=== PATIENT | male | born 1955 | race Caucasian/White ===

== ENCOUNTER 2018-04-11 14:54 | Inpatient (IN) | payer OTHER ==
[2018-04-11 17:10] VITALS: BMI 23.7
[2018-04-11] MEDS ORDERED: MELATONIN 5 MG TABLETS PO PRN (22:00)
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
[2018-04-11] MEDS ORDERED: guaiFENesin/D-METHORPHAN HB 10 ML UNIT-DOSE CUPS PO PRN (22:40)
[2018-04-11] MEDS ORDERED: P-EPHED 60MG/TRIPROLIDI 2.5MG TABLET PO PRN (22:40)
[2018-04-11] MEDS ORDERED: MAG HYDROX/AL HYDROX/SIMETH 30 ML UNIT-DOSE CUP PO PRN (22:40)
[2018-04-11] MEDS ORDERED: LOPERAMIDE HCL 2 MG CAPSULE PO PRN (22:40)
[2018-04-11] MEDS ORDERED: MAGNESIUM CITRATE 300 ML BOTTLE PO PRN (22:40)
[2018-04-11] MEDS ORDERED: ACETAMINOPHEN 325 MG TABLET (FP) PO PRN (22:40)
[2018-04-11] MEDS ORDERED: MENTHOL/PHENOL 1 EACH UD MM PRN (22:40)
[2018-04-11] MEDS ORDERED: chlordiazePOXIDE HCL 25 MG CAPSULE PO PRN (22:40)
[2018-04-11] MEDS ORDERED: MAGNESIUM HYDROX 2400MG/30ML ORAL SUSPENSION 30 ML CUP PO PRN (22:40)
[2018-04-11] MEDS ORDERED: chlordiazePOXIDE HCL 25 MG CAPSULE PO SCH (23:00)
[2018-04-11] MEDS ORDERED: METHADONE HCL 10 MG TABLET (FOR DETOX USE ONLY) PO ONE ×2 (23:00→23:51)
[2018-04-11] MEDS: IBUPROFEN 400 MG TABLET (FP) PO PRN (23:50)
[2018-04-11] MEDS: chlordiazePOXIDE HCL 25 MG CAPSULE PO SCH (23:56)
[2018-04-12 02:58] LABS: URINE APPEARANCE CLEAR; URINE BILIRUBIN NEGATIVE (<2.0 mg/dL); URINE COLOR YELLOW; URINE GLUCOSE (UA) NEGATIVE (NEGATIVE); URINE KETONE NEGATIVE (NEGATIVE); URINE LEUK ESTERASE NEGATIVE (NEGATIVE); URINE NITRITE NEGATIVE (NEGATIVE); URINE PROTEIN 1+ (NEGATIVE); URINE UROBILINOGEN NEGATIVE mg/dL (0.2-1.0)
[2018-04-12 03:12] LABS: EPI CELLS RARE /HPF (FEW); URINE BACTERIA MANY /hpf (NONE SEEN); URINE HYALINE CAST 27 /lpf; URINE MUCUS RARE
[2018-04-12] MEDS: chlordiazePOXIDE HCL 25 MG CAPSULE PO SCH ×4 (05:26→22:06)
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
[2018-04-12] MEDS ORDERED: METHADONE HCL 10 MG TABLET (FOR DETOX USE ONLY) PO SCH (10:00)
[2018-04-12 10:23] LABS: HEMATOCRIT 37.4 % (35.4-49); HEMOGLOBIN 12.4 GM/dL (11.7-16.9); MCH 32.4 pg (25.7-33.7); MCHC 33.2 g/dl (32.0-35.9); MEAN CELL VOLUME 97.3 fl (80-96); PLATELET COUNT 191 K/MM3 (134-434); RBC 3.84 M/mm3 (4.00-5.60); WHITE BLOOD COUNT 6.8 K/mm3 (4.0-10.0)
[2018-04-12] MEDS: PRENATAL VITAMINS W/ FOLIC ACID TABLET (FP) PO SCH (10:24)
[2018-04-12] MEDS: NICOTINE 14 MG/24 HOURS TOPICAL PATCH TD SCH (10:25)
[2018-04-12] MEDS: IBUPROFEN 400 MG TABLET (FP) PO PRN (10:28)
[2018-04-12] MEDS: TRIMETHOBENZAMIDE HCL 300 MG CAPSULE PO PRN (10:55)
[2018-04-12 10:56] LABS: ALBUMIN 3.4 g/dl (3.4-5.0); ALK PHOS 115 U/L (45-117); ANION GAP 9 MMOL/L (8-16); BILIRUBIN,TOTAL 0.7 mg/dL (0.2-1); BLOOD UREA NITROGEN 10 mg/dL (7-18); CALCIUM 8.2 mg/dL (8.5-10.1); CHLORIDE 105 mmol/L (98-107); CO2 28 mmol/L (21-32); CREATININE 0.6 mg/dL (0.55-1.3); GLUCOSE,RANDOM 83 mg/dL (74-106); POTASSIUM 3.5 mmol/L (3.5-5.1); SGOT/AST 20 U/L (15-37); SGPT/ALT 14 U/L (13-61); SODIUM 141 mmol/L (136-145); TOT PROT 6.6 g/dl (6.4-8.2)
--- NOTE | 2018-04-12 11:55 | EKG ---
Test Reason : Blood Pressure : / mmHG Vent. Rate : 101 BPM Atrial Rate : 101 BPM P-R Int : 128 ms QRS Dur : 090 ms QT Int : 352 ms P-R-T Axes : 080 053 066 degrees QTc Int : 456 ms SINUS TACHYCARDIA RIGHT ATRIAL ENLARGEMENT BORDERLINE ECG NO PREVIOUS ECGS AVAILABLE Confirmed by BISI FONTAINE MD ([id number]) on 04/12/2018 11:55:17 AM Referred By: Confirmed By:BISI FONTAINE MD
[2018-04-12] MEDS: chlordiazePOXIDE HCL 25 MG CAPSULE PO PRN (12:36)
[2018-04-12] MEDS ORDERED: GABAPENTIN 300 MG CAPSULE (FP) PO SCH (14:00)
--- NOTE | 2018-04-12 14:47 | PN ---
S CIWA - CIWA Score Nausea/Vomitin Muscle Tremors: 4-Moderate,w/Arms Extend Anxiety: 3 Agitation: 1-Slight > Activity Paroxysmal Sweats: No Perspiration Orientation: 0-Oriented Tacttile Disturbances: 2-Mild Itch/Numbness/Burn Auditory Disturbances: 0-None Visual Disturbances: 2-Mild Sensitivity Headache: 0-None Present CIWA-Ar Total Score: 15 BHS COWS - Scale Resting Pulse: 1= [place] 81-100 Sweatin=Flushed/Facial Moisture Restless Observation: 0= Sits Still Pupil Size: 0= Normal to Room Light Bone or Joint Aches: 2= Severe Diffuse Aches Runny Nose/ Eye Tearin= None GI Upset > 30mins: 2= Nausea/Diarrhea Tremor Observation of Outstretched Hands: 2= Slight Tremor Visible Yawning Observation: 0= None Anxiety or Irritability: 2=Irritable/Anxious Goose Flesh Skin: 3=Piloerection COWS Score: 14 BHS Progress Note (SOAP) Subjective: Interrupted Sleep, Tremors, Nausea, Body Aches, Diarrhea. Objective: PATIENT A & O X 3. NO ACUTE DISTRESS. 04/12/18 14:45 Vital Signs Temperature 98.4 F 04/12/18 13:18 Pulse Rate 74 04/12/18 13:18 Respiratory Rate 18 04/12/18 13:18 Blood Pressure 146/91 04/12/18 13:18 O2 Sat by Pulse Oximetry (%) Laboratory Tests 04/12/18 04/12/18 04/12/18 00:04 07:00 07:00 WBC 6.8 RBC 3.84 L Hgb 12.4 Hct 37.4 MCV 97.3 H MCH 32.4 MCHC 33.2 RDW 14.0 D Plt Count 191 MPV 8.0 D Sodium 141 Potassium 3.5 Chloride 105 Carbon Dioxide 28 Anion Gap 9 BUN 10 Creatinine 0.6 Creat Clearance w eGFR > 60 Random Glucose 83 Calcium 8.2 L Total Bilirubin 0.7 AST 20 ALT 14 Alkaline Phosphatase 115 Total Protein 6.6 Albumin 3.4 Urine Color Yellow Urine Appearance Clear Urine pH 5.0 Ur Specific [place] 1.011 Urine Protein 1+ H Urine Glucose (UA) Negative Urine Ketones Negative Urine Blood Negative Urine Nitrite Negative Urine Bilirubin Negative Urine Urobilinogen Negative Ur Leukocyte Esterase Negative Urine WBC (Auto) 1 Urine RBC (Auto) <1 Ur Epithelial Cells Rare Urine Bacteria Many Hyaline Casts 27 Urine Mucus Rare RPR Titer 04/12/18 07:00 WBC RBC Hgb Hct MCV MCH MCHC RDW Plt Count MPV Sodium Potassium Chloride Carbon Dioxide Anion Gap BUN Creatinine Creat Clearance w eGFR Random Glucose Calcium Total Bilirubin AST ALT Alkaline Phosphatase Total Protein Albumin Urine Color Urine Appearance Urine pH Ur Specific [place] Urine Protein Urine Glucose (UA) Urine Ketones Urine Blood Urine Nitrite Urine Bilirubin Urine Urobilinogen Ur Leukocyte Esterase Urine WBC (Auto) Urine RBC (Auto) Ur Epithelial Cells Urine Bacteria Hyaline Casts Urine Mucus RPR Titer Nonreactive LABS NOTED. Assessment: 04/12/18 14:46 WITHDRAWAL SYMPTOMS. Plan: CONTINUE DETOX. CONTINUE TO MONITOR BLOOD PRESSURE.
[2018-04-12] MEDS ORDERED: OLANZapine 10 MG TABLET PO SCH (22:00)
[2018-04-12] MEDS ORDERED: traZODone HCL 100 MG TABLET (FP) PO SCH (22:00)
[2018-04-12] MEDS ORDERED: THIAMINE HCL 100 MG TABLET (FP) PO SCH (22:00)
[2018-04-12 22:06] VITALS: TEMP 98.2
[2018-04-12] MEDS ORDERED: chlordiazePOXIDE HCL 25 MG CAPSULE PO SCH (23:00)
[2018-04-13] MEDS: IBUPROFEN 400 MG TABLET (FP) PO PRN (06:24)
[2018-04-13] MEDS: chlordiazePOXIDE HCL 25 MG CAPSULE PO SCH ×2 (06:24→10:37)
[2018-04-13 09:32] VITALS: BP 136/84; PULSE 95
[2018-04-13] MEDS ORDERED: METHADONE HCL 5 MG TABLET (FOR DETOX USE ONLY) PO SCH (10:00)
[2018-04-13] MEDS: PRENATAL VITAMINS W/ FOLIC ACID TABLET (FP) PO SCH (10:37)
[2018-04-13] MEDS: NICOTINE 14 MG/24 HOURS TOPICAL PATCH TD SCH (10:38)
[2018-04-13] MEDS: TRIMETHOBENZAMIDE HCL 300 MG CAPSULE PO PRN (11:03)
[2018-04-13] MEDS: chlordiazePOXIDE HCL 25 MG CAPSULE PO PRN (11:03)
--- NOTE | 2018-04-13 15:32 | DS ---
[facility] Detox Discharge Summary Admission Date: 04/11/18 Discharge Date: 04/13/18 - History Present History: Alcohol Dependence Pertinent Past History: Pt requesting to go home today- says he has things to do- offered and given pt extra librium and anti-nausea meds- pt still requesting to go home AMA - Physical Exam Results Vital Signs: Vital Signs Temperature 98.2 F 04/13/18 09:31 Pulse Rate 95 H 04/13/18 09:31 Respiratory Rate 16 04/13/18 09:31 Blood Pressure 136/84 04/13/18 09:31 O2 Sat by Pulse Oximetry (%) - Medication Discharge Medications: Ambulatory Orders traZODone HCL [Desyrel -] 100 mg PO HS #30 tablet 04/12/18 - AMA Did Patient Leave Against Medical Advice: Yes
[2018-04-13] MEDS ORDERED: chlordiazePOXIDE 5 MG CAPSULE PO SCH ×2 (23:00)
[2018-04-14] MEDS ORDERED: chlordiazePOXIDE HCL 10 MG CAPSULE PO SCH ×2 (23:00)
[2018-04-15] MEDS ORDERED: METHADONE HCL 10 MG TABLET (FOR DETOX USE ONLY) PO SCH (10:00)
[2018-04-16] MEDS ORDERED: METHADONE HCL 5 MG TABLET (FOR DETOX USE ONLY) PO SCH (06:00)
== END 2018-04-13 12:00 | disposition left against medical advice (07) | DRG 770 ==
LOC: YASAS 14:54 → Y6N 21:29
PROC: HZ2ZZZZ Detoxification Services for Substance Abuse Treatment (ICD-10-PCS; principal; 2018-04-11)
DX: F10.230 Alcohol dependence with withdrawal, uncomplicated (principal); F11.20 Opioid dependence, uncomplicated; F17.210 Nicotine dependence, cigarettes, uncomplicated; F19.24 Other psychoactive substance dependence with psychoactive substance-induced mood disorder; F32.9 Major depressive disorder, single episode, unspecified; I10 Essential (primary) hypertension; Z87.828 Personal history of other (healed) physical injury and trauma
CPT/HCPCS: 36415; 80053; 81003; 81015; 85027; 86593; 93005; 93010